=== PATIENT | male | born 1965 ===

== ENCOUNTER 2021-05-13 05:07 | Emergency (ER) | payer BC, OTHER ==
[~2021-05-13] VITALS: Ht 182.9 cm; Wt 102.1 kg
[2021-05-13 07:42] LABS: Basophils # (auto) 0.1 10 ^3/uL (0-0.2); Basophils % (auto) 0.5 % (0.0-2.0); Eosinophils # (auto) 0.1 10 ^3/uL (0-0.8); Eosinophils % (auto) 0.3 % (0.0-7.0); Hematocrit 48.6 % (41.0-53.0); Hemoglobin 16.9 g/dL (13.5-17.5); Lymphocytes # (auto) 1.2 10 ^3/uL (0.4-5.4); Mean Corpuscular Hemoglobin 33.1 pg (28.0-32.0); Mean Corpuscular Hgb Conc. 34.7 g/dL (32.0-36.0); Mean Corpuscular Volume 95.4 fL (80.0-100.0); Monocytes # (auto) 1.3 10 ^3/uL (0-1.3); Monocytes % (auto) 5.3 % (0.0-12.0); Neutrophils # (auto) 21.8 10 ^3/uL (1.6-8.6); Neutrophils % (auto) 88.9 % (37.0-80.0); Red Blood Cells 5.09 10^6/uL (4.5-5.90); Red Cell Distribution Width 12.8 % (11.8-14.3); White Blood Cell 24.5 10^3/uL (4.4-10.8)
[2021-05-13 07:55] LABS: Albumin 3.9 g/dL (3.4-5.0); Calcium 8.7 mg/dL (8.5-10.1); Potassium 4.6 mmol/L (3.5-5.1)
[2021-05-13 08:01] LABS: BUN/Creatinine Ratio 14.2; Total Protein 7.5 g/dL (6.4-8.2)
[2021-05-13] MEDS: ACETAMINOPHEN 325 MG TAB PO ONE (09:45)
[2021-05-13] MEDS ORDERED: ACET30TA15 PO (10:32)
[2021-05-13] MEDS ORDERED: LEVO500T31 PO (10:32)
[2021-05-13] MEDS ORDERED: ALBU108A5 IN (10:32)
[2021-05-13] MEDS ORDERED: PRED20TA2 PO (10:32)
[2021-05-13 11:29] VITALS: BP 127/74
== END 2021-05-13 11:30 | disposition home or self-care (01) ==
LOC: ER 05:07
DX: J18.9 Pneumonia, unspecified organism (principal); Z20.822 Contact with and (suspected) exposure to COVID-19
CPT/HCPCS: 36415; 71250; 80053; 84484; 85025; 87426; 87804; 93005